=== PATIENT | male | born 1980 | race Asian ===

== ENCOUNTER 2020-11-15 21:03 | Emergency (ER) | payer OTHER ==
[~2020-11-15] VITALS: Ht 185.4 cm; Wt 89.8 kg
[2020-11-15 23:30] VITALS: BP 202/100
== END 2020-11-16 01:00 | disposition home or self-care (01) ==
LOC: ER 21:03
DX: R04.0 Epistaxis (principal)

== ENCOUNTER 2020-11-16 20:38 | Emergency (ER) | payer OTHER ==
[~2020-11-16] VITALS: Ht 185.4 cm; Wt 89.8 kg
[2020-11-17 00:01] VITALS: BP 177/100
== END 2020-11-17 | disposition home or self-care (01) ==
LOC: ER 20:38
DX: R04.0 Epistaxis (principal); R03.0 Elevated blood-pressure reading, without diagnosis of hypertension